=== PATIENT | female | born 1955 ===

== ENCOUNTER → 2021-09-20 14:57 | Outpatient (BNVA) | payer BC, SELFPAY | PROVIDERS: PCP Nurse Practitioner Family; Visit Provider Internal Medicine Rheumatology | DX: Z13.89 Encounter for screening for other disorder (principal) ==

== ENCOUNTER 2021-09-23 06:57 | Outpatient (REF) | payer BC, SELFPAY ==
--- NOTE | ~2021-09-23 | XR_ITS ---
EXAMINATION: XR BILATERAL HAND CLINICAL INFORMATION: Long-term drug therapy. COMPARISON: None. TECHNIQUE: 3 views each hand. FINDINGS: Left Hand: There is periarticular bony erosive changes DIP joint 3rd digit and mild periarticular spurring DIP joint 2nd digit. No visible acute fracture or dislocation seen. Soft tissues are unremarkable. Right Hand: There is no visible acute fracture, dislocation or subluxation. Mild loss of PIP and DIP joint spaces seen. There is minimal periarticular spurring DIP joints 2nd and 3rd digits. There is mild osteopenia. XR/XR hand RT min 3V IMPRESSION: Mild degenerative changes PIP and DIP joints of both hands. No visible acute fracture or dislocation. No subluxation seen. Mild osteopenia.
--- NOTE | ~2021-09-23 | XR_ITS ---
EXAMINATION: XR BILATERAL HAND CLINICAL INFORMATION: Long-term drug therapy. COMPARISON: None. TECHNIQUE: 3 views each hand. FINDINGS: Left Hand: There is periarticular bony erosive changes DIP joint 3rd digit and mild periarticular spurring DIP joint 2nd digit. No visible acute fracture or dislocation seen. Soft tissues are unremarkable. Right Hand: There is no visible acute fracture, dislocation or subluxation. Mild loss of PIP and DIP joint spaces seen. There is minimal periarticular spurring DIP joints 2nd and 3rd digits. There is mild osteopenia. XR/XR hand LT min 3V IMPRESSION: Mild degenerative changes PIP and DIP joints of both hands. No visible acute fracture or dislocation. No subluxation seen. Mild osteopenia.
[2021-09-23 11:21] LABS: MANUAL DIFF FLAG NO
[2021-09-23 11:43] LABS: Alanine Aminotransferase 16 U/L (0-31); Albumin Level 4.1 g/dL (3.5-5.0); Alkaline Phosphatase 65 U/L (39-117); Anion Gap 13 (12-20); Aspartate Amino Transferase 25 U/L (5-31); Bilirubin Total 0.6 mg/dL (0.0-1.0); Blood Urea Nitrogen 16 mg/dL (9-16); C Reactive Protein 0.65 mg/dL (< or = 0.50); Calcium 9.5 mg/dL (8.4-10.2); Carbon Dioxide 25 mmol/L (22-29); Chloride 103 mmol/L (96-108); Estimated Glomerular Filt Rate > 60; Glucose Random 113 mg/dL (60-115); Potassium 4.4 mmol/L (3.3-5.1); Sodium 137 mmol/L (135-145); Total Protein 7.4 g/dL (6.5-8.0)
[2021-09-23 11:58] LABS: Basophils Percent Auto 0.5 % (0-2); Eosinophils Absolute Auto 0.2 X10*3/uL (0.0-0.4); Eosinophils Percent Auto 3.9 % (0-4); Hematocrit 37.6 % (37.0-47.0); Imm Gran Abs Auto 0.02 X10*3/uL (0.00-0.03); Imm Gran Pct Auto 0.3 % (0.0-0.4); Lymphocytes Absolute Auto 1.5 X10*3/uL (1.2-4.9); Lymphocytes Percent Auto 24.7 % (20-40); Mean Corpuscular HGB Conc 31.9 g/dl (31.0-35.0); Mean Corpuscular Volume 87.9 fL (80.0-98.0); Mean Platelet Volume 10.4 fL (9.4-12.3); Monocytes Absolute Auto 0.6 X10*3/uL (0.1-1.2); Neutrophils Absolute Auto 3.6 x10*3/uL (2.0-8.3); Neutrophils Percent Auto 60.6 % (45-73); Platelet Count 357 X10*3/uL (160-400); Red Blood Count 4.28 X10*6/uL (4.20-5.50); Red Cell Distribution Width 14.3 % (11.0-16.0); White Blood Count 5.9 X10*3/uL (4.8-10.8)
[2021-09-23 12:42] LABS: Erythrocyte Sedimentation Rate 34 MM/HR (0-20)
== END 2021-09-23 06:58 | disposition home or self-care (01) ==
LOC: HO.HMGCLDS 06:57
PROVIDERS: PCP Nurse Practitioner Family; Visit Provider Internal Medicine Rheumatology
DX: M19.90 Unspecified osteoarthritis, unspecified site (principal); Z79.899 Other long term (current) drug therapy
CPT/HCPCS: 36415; 73130; 80053; 85025; 85652; 86140

== ENCOUNTER → 2022-09-26 14:50 | Outpatient (BNVA) | payer BC, SELFPAY | PROVIDERS: PCP Nurse Practitioner Family; Visit Provider Internal Medicine Rheumatology | DX: Z13.89 Encounter for screening for other disorder (principal) ==

== ENCOUNTER 2022-09-29 07:10 | Outpatient (REF) | payer BC, SELFPAY ==
[2022-09-29 11:44] LABS: MANUAL DIFF FLAG NO
[2022-09-29 12:01] LABS: Alanine Aminotransferase 15 U/L (0-31); Albumin Level 4.3 g/dL (3.5-5.0); Alkaline Phosphatase 68 U/L (39-117); Anion Gap 13 (12-20); Aspartate Amino Transferase 26 U/L (5-31); Basophils Percent Auto 0.6 % (0-2); Bilirubin Total 0.6 mg/dL (0.0-1.0); Blood Urea Nitrogen 17 mg/dL (9-16); C Reactive Protein 0.41 mg/dL (< or = 0.50); Calcium 9.3 mg/dL (8.4-10.2); Carbon Dioxide 26 mmol/L (22-29); Chloride 103 mmol/L (96-108); Eosinophils Absolute Auto 0.2 X10*3/uL (0.0-0.4); Eosinophils Percent Auto 3.7 % (0-4); Estimated Glomerular Filt Rate > 60; Glucose Random 104 mg/dL (60-115); Hematocrit 38.3 % (37.0-47.0); Hemoglobin 12.2 g/dl (12.0-16.0); Imm Gran Abs Auto 0.01 X10*3/uL (0.00-0.03); Imm Gran Pct Auto 0.2 % (0.0-0.4); Lymphocytes Absolute Auto 1.4 X10*3/uL (1.2-4.9); Lymphocytes Percent Auto 27.9 % (20-40); Mean Corpuscular HGB Conc 31.9 g/dl (31.0-35.0); Mean Corpuscular Hemoglobin 27.7 pg (27.0-33.0); Mean Platelet Volume 10.1 fL (9.4-12.3); Monocytes Absolute Auto 0.6 X10*3/uL (0.1-1.2); Monocytes Percent Auto 12.1 % (2-11); Neutrophils Absolute Auto 2.7 x10*3/uL (2.0-8.3); Neutrophils Percent Auto 55.5 % (45-73); Platelet Count 305 X10*3/uL (160-400); Potassium 4.2 mmol/L (3.3-5.1); Red Cell Distribution Width 14.4 % (11.0-16.0); Sodium 138 mmol/L (135-145); Total Protein 7.2 g/dL (6.5-8.0); White Blood Count 4.9 X10*3/uL (4.8-10.8)
[2022-09-29 12:43] LABS: Erythrocyte Sedimentation Rate 25 MM/HR (0-20)
== END 2022-09-29 07:11 | disposition home or self-care (01) ==
LOC: HO.HMGCLDS 07:10
PROVIDERS: PCP Nurse Practitioner Family; Visit Provider Internal Medicine Rheumatology
DX: M19.90 Unspecified osteoarthritis, unspecified site (principal); Z79.899 Other long term (current) drug therapy
CPT/HCPCS: 36415; 80053; 85025; 85652; 86140

== ENCOUNTER 2023-04-03 14:53 | Outpatient (AMB) | payer BC, SELFPAY ==
--- NOTE | 2023-04-03 14:54 | A.OFFVIS_ITS ---
Intake Vital Signs 04/03/23 15:16 Height 5 ft 4 in Weight 150 lb 9.211 oz BMI 25.8 BP 100/80 Blood Pressure Location Rt brachial Position Sitting Pulse 84 Pulse Source Pulse Oximeter Temp 97.5 F Temp Source Skin Pulse Oximetry (%) 96 Oxygen Delivery Method Room Air Intake Visit Reasons: Rheumatoid Arthritis Intake Note: Patient presents today to follow up on RA. 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 Accompanied by: Self / Same As Patient Allergies Penicillins Allergy (Severe, Verified 04/03/23 15:17) Unknown Medication List - Last Reconciled 04/03/23 by Sly Townsend MD atorvastatin 10 mg PO DAILY calcium 26-vit D3-magnesium 15 167 mg calcium- 1.67 mcg-83 mg 1 cap PO DAILY cranberry extract 500 mg PO DAILY [id number] 149-hyal ac 750 mg-100 mg- 125 mg-1.65 mg (Glucosamine Chondroit Complx Advan) 1 tab PO DAILY multivitamin 1 tab PO DAILY omega-3 fatty acids 1,000 mg PO DAILY sulfasalazine 0.5 grams PO five times a day; give with food (meal/snack) HPI HPI Comments History of Present Illness Details The patient returns for evaluation of her seronegative rheumatoid arthritis. She remains on the sulfasalazine, taking 2500 mg spread through the day. She does admit occasionally that she skips a dose. She seems to say the joints are fairly stable with occasional aching in the fingers when she is busy. There has not been any numbness in the hands or feet. She had been evaluated in the past by her primary doctor for osteoporosis. Treatment with alendronate was started but she decided against it, worried about side effects. She is on some vitamin-D supplements that she takes in the winter time at present. She is active taking walks and also gardening. [facility] Medical History Long-term use of immunosuppressant medication Osteoporosis Osteoarthritis of foot Inflammatory arthritis Surgical History H/O tubal ligation Social History Household Members: Spouse Both parents involved: No Caregiver staying overnight: No Housing: House Are you a primary personal care worker to a significant other at home: No Do you presently have visiting nurse or other home services: No 75 years or older and lives alone: No Alcohol intake: current Alcohol intake frequency: holidays/special occasions only Alcohol type: wine Patient Tobacco Use Status: Never used Tobacco e-Cigarette/Vaping Use: Never Used service: No Current occupational status: retired Review of Systems Const Details: Negative for appetite change, weight change, fever, chills, malaise and fatigue Eyes Details: Negative for vision change, dry eyes,headaches and dizziness GI Details: Negative indigestion/heartburn, nausea, abdominal pain, bowel changes, diarrhea, constipation and bloody stool. Skin/Breast Details: Negative for itching, rash, hives, Raynaud's symptoms, sun sensitivity, and skin cancer Endo Details: Negative for polyuria and polydypsia Kulwant/Lymph Details: Negative for excessive bruising or bleeding. Physical Exam Vital Signs: Last Vital Signs Temp 97.5 F 04/03/23 15:16 Pulse 84 04/03/23 15:16 BP 100/80 04/03/23 15:16 Pulse Ox 96 04/03/23 15:16 Oxygen Delivery Method Room Air 04/03/23 15:16 BMI result Body Mass Index 25.8 APPEARANCE: Patient in no acute distress EYES no redness, pupils equal and reactive to light, eyelids normal. No temporal artery tenderness, redness or swelling Cervical Spine:.? Slight decrease in the extent?of normal?range of motion without pain; no tenderness. Thoracic Spine:.? No scoliosis.? No tenderness on palpation. Lumbar Spine:.? Alignment normal.? Full range of motion without pain, no tenderness. Chest Wall:.? No tenderness, swelling, increased warmth or erythema. Hands:.? Right:? There is swelling of the 1st 3 MCP joints of a mild degree.? There MCP are not tender.? There is some minimal bony enlargement at the thumb IP joint, 2nd DIP, and 3rd DIP joints without tenderness.? There is no flexor tendon triggering, thenar atrophy or sensory loss.? Left:? There is slight swelling of the 1st 2 MCP joints and without tenderness.? There is some minimal bony enlargement without tenderness at the PIP joints.? No flexor tendon triggering, thenar atrophy or sensory loss. Wrists:? right:? There is mild pain with flexion at 10 degrees and 45 degrees of flexion.? some slight tenderness but no swelling.? Some wrist pain with extremes of supination and pronation of the wrist.? Left: Mild pain with flexion at 60 degrees or extension and 45 degrees.? Slight tenderness but no swelling. Shoulders:.?? Full range of motion without pain. No tenderness, weakness, swelling, increased warmth or erythema. Hips:.? Full range of motion without pain. Hip bursa:.? No tenderness. Knees:.?? Normal pain-free range of motion with mild patellofemoral crepitus but no effusion,? tenderness, swelling, increased warmth or erythema.? Ankles:.? Normal pain-free range of motion without tenderness, swelling, increased warmth or erythema. Feet:? Right:? Mild to moderate bony enlargement and limitation of motion of the 1st MTP joint.? It is minimally tender.? There is minimal hallux valgus deformity.? Other joints in the foot do not show any swelling or tenderness.? Left:? Slight bony enlargement without tenderness at the 1st MTP.? Other joints have normal pain-free range of motion without tenderness, swelling, increased warmth or erythema. Tender points: No tenderness to digital palpation at the occiput, trapezius, second rib, lateral epicondyle, knees, greater trochanter and gluteal area bilaterally. Results Reviewed Results Reviewed: Laboratory Tests 09/29/22 07:16 WBC 4.9 Hgb 12.2 ESR 25 H Creatinine 0.85 AST 26 ALT 15 C-Reactive Protein 0.41 Assessment & Plan Assessment & Plan (1) Long-term use of immunosuppressant medication: Code(s): Z79.899 - Other medical terminologist (current) drug therapy (2) Osteoporosis: Code(s): M81.0 - Age-related osteoporosis without current pathological fracture (3) Inflammatory arthritis: Comment: Some erosive changes in finger looking like OA Code(s): M19.90 - Unspecified osteoarthritis, unspecified site Plan Rheumatoid arthritis with I think good control of inflammation at present. She has some limitation range of motion in the wrists, a chronic problem. The lab work looked good from the spring and we we will recheck CBC, inflammatory markers and Chem panel. She will continue with the sulfasalazine as above. I did discuss with her the benefits of evaluation and treatment for osteoporosis. Another bone density at this point might be more predictive of her possibility of fracture. She does not want to proceed with that as she thinks the treatment was too risky for her. She will be scheduled for return visit in about 6 months. Orders: Orders Erythrocyte Sedimentation Rate Today M19.90 - Unspecified osteoarthritis, unspecified site, Z79.899 - Other medical terminologist (current) drug therapy Complete Blood Count Auto Diff Today M19.90 - Unspecified osteoarthritis, unspecified site, Z79.899 - Other detention (current) drug therapy Comprehensive Met. Panel Today M19.90 - Unspecified osteoarthritis, unspecified site, Z79.899 - Other detention (current) drug therapy C Reactive Protein Today M19.90 - Unspecified osteoarthritis, unspecified site, Z79.899 - Other detention (current) drug therapy Vitamin D 25-OH (D2 and D3) Today M81.0 - Age-related osteoporosis without current pathological fracture Coding Level of Care Code Est Pt Level 3 (92868) Diagnoses Long-term use of immunosuppressant medication Z79.899 Osteoporosis M81.0 Inflammatory arthritis M19.90
[2023-04-03 15:16] VITALS: BP 100/80; PULSE 84; TEMP 36.4; O2SAT 96; BMI 25.8
== END 2023-04-03 16:08 | disposition home or self-care (01) ==
PROVIDERS: PCP Nurse Practitioner Family; Visit Provider Internal Medicine Rheumatology
DX: Z79.899 Other long term (current) drug therapy (principal); M81.0 Age-related osteoporosis without current pathological fracture; M19.90 Unspecified osteoarthritis, unspecified site
CPT/HCPCS: 99213

== ENCOUNTER → 2023-04-03 14:53 | Outpatient (BNVA) | payer BC, SELFPAY | PROVIDERS: PCP Nurse Practitioner Family; Visit Provider Internal Medicine Rheumatology ==

== ENCOUNTER 2023-04-04 08:10 | Outpatient (REF) | payer BC, SELFPAY ==
[2023-04-04 11:29] LABS: MANUAL DIFF FLAG NO
[2023-04-04 11:51] LABS: Basophils Percent Auto 0.7 % (0-2); Eosinophils Absolute Auto 0.2 X10*3/uL (0.0-0.4); Eosinophils Percent Auto 3.5 % (0-4); Hemoglobin 12.5 g/dl (12.0-16.0); Imm Gran Abs Auto 0.01 X10*3/uL (0.00-0.03); Imm Gran Pct Auto 0.2 % (0.0-0.4); Lymphocytes Absolute Auto 1.4 X10*3/uL (1.2-4.9); Lymphocytes Percent Auto 29.3 % (20-40); Mean Corpuscular HGB Conc 32.1 g/dl (31.0-35.0); Mean Corpuscular Hemoglobin 28.7 pg (27.0-33.0); Mean Corpuscular Volume 89.7 fL (80.0-98.0); Monocytes Absolute Auto 0.4 X10*3/uL (0.1-1.2); Monocytes Percent Auto 9.3 % (2-11); Neutrophils Absolute Auto 2.6 x10*3/uL (2.0-8.3); Platelet Count 313 X10*3/uL (160-400); Red Blood Count 4.35 X10*6/uL (4.20-5.50); Red Cell Distribution Width 14.1 % (11.0-16.0); White Blood Count 4.6 X10*3/uL (4.8-10.8)
[2023-04-04 12:15] LABS: Alanine Aminotransferase 15 U/L (0-31); Albumin Level 4.3 g/dL (3.5-5.0); Alkaline Phosphatase 66 U/L (39-117); Anion Gap 14 (12-20); Aspartate Amino Transferase 23 U/L (5-31); Bilirubin Total 0.4 mg/dL (0.0-1.0); Blood Urea Nitrogen 17 mg/dL (9-16); Calcium 9.2 mg/dL (8.4-10.2); Carbon Dioxide 24 mmol/L (22-29); Chloride 106 mmol/L (96-108); Estimated Glomerular Filt Rate > 60; Glucose Random 101 mg/dL (60-115); Potassium 4.2 mmol/L (3.3-5.1); Sodium 140 mmol/L (135-145); Total Protein 7.7 g/dL (6.5-8.0)
[2023-04-04 12:42] LABS: Erythrocyte Sedimentation Rate 25 MM/HR (0-20)
[2023-04-08 13:27] LABS: Vitamin D 25-OH, D2 <4 ng/mL; Vitamin D 25-OH, D3 50 ng/mL; Vitamin D 25-OH, Total 50 ng/mL (30-100)
== END 2023-04-04 08:11 | disposition home or self-care (01) ==
LOC: HO.HMGCLDS 08:10
PROVIDERS: PCP Nurse Practitioner Family; Visit Provider Internal Medicine Rheumatology
DX: M19.90 Unspecified osteoarthritis, unspecified site (principal); M81.0 Age-related osteoporosis without current pathological fracture; Z79.899 Other long term (current) drug therapy
CPT/HCPCS: 36415; 80053; 82306; 85025; 85652; 86140

== ENCOUNTER 2023-10-10 15:11 | Outpatient (AMB) | payer BC, SELFPAY ==
--- NOTE | 2023-10-10 15:19 | A.OFFVIS_ITS ---
Vital Signs 10/10/23 15:27 Height 5 ft 4 in Weight 158 lb 1.143 oz BMI 27.1 BP 110/78 Blood Pressure Location Rt brachial Position Sitting Pulse 69 Pulse Source Pulse Oximeter Pulse Oximetry (%) 97 Oxygen Delivery Method Room Air Intake Visit Reasons: ra Intake Note: Patient last seen 04/03/[address] Townsend, presents today for follow up and test results. Pt would like to addres medication dosage. 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 Cook 68yoF returns for followup of her seronegative rheumatoid arthritis. She remains on the sulfasalazine, taking 2500 mg spread through the day. She does admit occasionally that she skips a dose. She reports that the joints are fairly stable with occasional aching in the fingers with excessive use. She denies numbness in the hands or feet. She had been evaluated in the past by her PCP for osteoporosis. Treatment with alendronate was started but she decided against it, worried about side effects. She takes vitamin-D supplements only in the winter time at present. She is active taking walks and also gardening. [facility] Medical History (Updated 10/10/23 @ 15:29 by OMAYRA Coronado) Long-term use of immunosuppressant medication Osteoporosis Osteoarthritis of foot Inflammatory arthritis Surgical History H/O tubal ligation Social History Household Members: Spouse Housing: House Are you a primary medicare interviewer to a significant other at home: No Do you presently have visiting nurse or other home services: No Alcohol intake: current Alcohol intake frequency: holidays/special occasions only Alcohol type: wine Patient Tobacco Use Status: Never used Tobacco e-Cigarette/Vaping Use: Never Used service: No Current occupational status: retired Review of Systems Const All systems reviewed & are unremarkable except as noted in HPI and below Physical Exam Vital Signs: Last Vital Signs Pulse 69 10/10/23 15:27 BP 110/78 10/10/23 15:27 Pulse Ox 97 10/10/23 15:27 Oxygen Delivery Method Room Air 10/10/23 15:27 BMI result Body Mass Index 27.1 APPEARANCE: Patient in no acute distress EYES no redness, eyelids normal. No temporal artery tenderness, redness or swelling HEART:? Regular rhythm, S1-S2 heard, no murmurs, rubs or gallops. LUNG:? Clear to percussion and auscultation Cervical Spine:.? Slight decrease in the extent?of normal?range of motion without pain; no tenderness. Thoracic Spine:.? No scoliosis.? No tenderness on palpation. Lumbar Spine:.? Alignment normal.? Full range of motion without pain, no tenderness. Chest Wall:.? No tenderness, swelling, increased warmth or erythema. Hands:.? Right:? There is enlargement of the 1st 3 MCP joints of a mild degree.? There MCP are not tender.? There is some minimal bony enlargement at the thumb IP joint, 2nd DIP, and 3rd DIP joints without tenderness.? There is no flexor tendon triggering, thenar atrophy or sensory loss.? Left:? There is some minimal bony enlargement without tenderness at the PIP joints.? No flexor tendon triggering, thenar atrophy or sensory loss. Wrists:? right:? There is mild pain with flexion at 10 degrees and 45 degrees of flexion.? some slight tenderness but no swelling.? Some wrist pain with extremes of supination and pronation of the wrist.? Left: Mild pain with flexion at 60 degrees or extension and 45 degrees.? Shoulders:.?? Full range of motion without pain. No tenderness, weakness, swelling, increased warmth or erythema. Hips:.? Full range of motion without pain. Hip bursa:.? No tenderness. Knees:.?? Normal pain-free range of motion with mild patellofemoral crepitus but no effusion,? tenderness, swelling, increased warmth or erythema.? Ankles:.? Normal pain-free range of motion without tenderness, swelling, increased warmth or erythema. Feet:? Right:? Mild to moderate bony enlargement and limitation of motion of the 1st MTP joint.? It is minimally tender.? There is minimal hallux valgus deformity.? Other joints in the foot do not show any swelling or tenderness.? Left:? Slight bony enlargement without tenderness at the 1st MTP.? Other joints have normal pain-free range of motion without tenderness, swelling, increased warmth or erythema. Tender points: No tenderness to digital palpation at the occiput, trapezius, second rib, lateral epicondyle, knees, greater trochanter and gluteal area bilaterally. Results Reviewed Results Reviewed: Laboratory Tests 09/29/22 07:16 WBC 4.9 Hgb 12.2 ESR 25 H Creatinine 0.85 AST 26 ALT 15 C-Reactive Protein 0.41 Laboratory Tests 10/11/23 07:15 ESR 20 Creatinine 0.74 AST 27 ALT 19 C-Reactive Protein 0.[address] [address] XRay Report Signed Patient: Joyce Koehler MR#: [id number] : 1955 Acct:[id number] Age/Sex: 66 / F ADM Date: 09/23/21 Loc: [facility] Attending Dr: Sly Townsend MD Ordering Physician: Sly Townsend MD Date of Service: 09/23/21 Procedure(s): XR hand RT min 3V Accession Number(s): [id number] cc: Sly Townsend MD~ EXAMINATION: XR BILATERAL HAND CLINICAL INFORMATION: Long-term drug therapy. COMPARISON: None. TECHNIQUE: 3 views each hand. FINDINGS: Left Hand: There is periarticular bony erosive changes DIP joint 3rd digit and mild periarticular spurring DIP joint 2nd digit. No visible acute fracture or dislocation seen. Soft tissues are unremarkable. Right Hand: There is no visible acute fracture, dislocation or subluxation. Mild loss of PIP and DIP joint spaces seen. There is minimal periarticular spurring DIP joints 2nd and 3rd digits. There is mild osteopenia. XR/XR hand RT min 3V IMPRESSION: Mild degenerative changes PIP and DIP joints of both hands. No visible acute fracture or dislocation. No subluxation seen. Mild osteopenia. Assessment & Plan Assessment & Plan (1) Long-term use of immunosuppressant medication: Code(s): Z79.899 - Other skilled nursing (current) drug therapy Category: Medical (2) Osteoporosis: Code(s): M81.0 - Age-related osteoporosis without current pathological fracture Category: Medical Qualifiers: Osteoporosis type: age-related Presence of current pathological fracture: without current pathological fracture Qualified Code(s): M81.0 - Age- related osteoporosis without current pathological fracture (3) Inflammatory arthritis: Comment: Some erosive changes in finger looking like OA Code(s): M19.90 - Unspecified osteoarthritis, unspecified site Category: Medical Plan #Rheumatoid arthritis with I think good control of inflammation at present. She has some limitation range of motion in the wrists, a chronic problem. Patient desires to reduce SLZ. She was advised that imaging taken in the past in 2021 does show periarticular erosions and osteopenia which are some destructive signs of the RA. Sometimes this can still be ongoing even though there is no swelling and tenderness to her joints. She will continue with the sulfasalazine but decrease the dose to 4 pills and will go back to 5 if ROS such increased stiffness, tenderness and swelling. #Fdc Use: The lab work looked good from the spring 2022 and today we will recheck CBC, inflammatory markers and Chem panel. #Osteoporosis: I did discuss with her again the benefits of evaluation and treatment for osteoporosis. Another bone density at this point might be more predictive of her possibility of fracture. She does not want to proceed with that as she thinks the treatment was too risky for her. time spent 30 minutes reviewing history, evaluating patient and documenting She will be scheduled for return visit in about 6 months with labs 1 week before next visit Orders: Orders Erythrocyte Sedimentation Rate 4 Months M19.90 - Unspecified osteoarthritis, un specified site, Z79.899 - Other intermediate designer (current) drug therapy Complete Blood Count Auto Diff 4 Months M19.90 - Unspecified osteoarthritis, unspecified site, Z79.899 - Other intermediate designer (current) drug therapy Comprehensive Met. Panel 4 Months M19.90 - Unspecified osteoarthritis, unspecified site, Z79.899 - Other skilled nursing (current) drug therapy Erythrocyte Sedimentation Rate 10/11/23 Z79.899 - Other intermediate designer (current) drug therapy, M19.90 - Unspecified osteoarthritis, unspecified site Comprehensive Met. Panel 10/11/23 Z79.899 - Other intermediate designer (current) drug therapy, M19.90 - Unspecified osteoarthritis, unspecified site C Reactive Protein 4 Months M19.90 - Unspecified osteoarthritis, unspecified site, Z79.899 - Other intermediate designer (current) drug therapy C Reactive Protein 10/11/23 Z79.899 - Other skilled nursing (current) drug therapy, M19.90 - Unspecified osteoarthritis, unspecified site Complete Blood Count Auto Diff 10/11/23 Z79.899 - Other intermediate designer (current) drug therapy, M19. - Unspecified osteoarthritis, unspecified site Medications: Changed From sulfasalazine 0.5 grams PO five times a day; give with food (meal/snack) 450 tabs 3RF M19.90 - Unspecified osteoarthritis, unspecified site To sulfasalazine 0.5 grams PO five times a day; give with food (meal/snack) 450 tabs 3RF M19.90 - Unspecified osteoarthritis, unspecified site Coding Level of Care Code Est Pt Level 4 (04965) Complex EM visit Add On G2211 Diagnoses Long-term use of immunosuppressant medication Z79.899 Age-related osteoporosis without current pathological fracture M81.0 Osteoporosis type: age-related Presence of current pathological fracture: without current pathological fracture Inflammatory arthritis M19.90
[2023-10-10 15:27] VITALS: BP 110/78; PULSE 69; O2SAT 97; BMI 27.1
== END 2023-10-10 15:54 | disposition home or self-care (01) ==
PROVIDERS: PCP Nurse Practitioner Family; Visit Provider Nurse Practitioner Family
DX: Z79.899 Other long term (current) drug therapy (principal); M81.0 Age-related osteoporosis without current pathological fracture; M19.90 Unspecified osteoarthritis, unspecified site
CPT/HCPCS: 99214

== ENCOUNTER → 2023-10-10 15:11 | Outpatient (BNVA) | payer BC, SELFPAY | PROVIDERS: PCP Nurse Practitioner Family; Visit Provider Nurse Practitioner Family ==

== ENCOUNTER 2023-10-11 07:10 | Outpatient (REF) | payer BC, SELFPAY ==
[2023-10-11 10:25] LABS: MANUAL DIFF FLAG NO
[2023-10-11 10:37] LABS: Basophils Percent Auto 0.6 % (0-2); Eosinophils Absolute Auto 0.3 X10*3/uL (0.0-0.4); Eosinophils Percent Auto 5.1 % (0-4); Hematocrit 37.8 % (37.0-47.0); Hemoglobin 12.2 g/dl (12.0-16.0); Imm Gran Abs Auto 0.01 X10*3/uL (0.00-0.03); Imm Gran Pct Auto 0.2 % (0.0-0.4); Lymphocytes Absolute Auto 1.5 X10*3/uL (1.2-4.9); Lymphocytes Percent Auto 31.4 % (20-40); Mean Corpuscular HGB Conc 32.3 g/dl (31.0-35.0); Mean Corpuscular Hemoglobin 28.8 pg (27.0-33.0); Mean Corpuscular Volume 89.4 fL (80.0-98.0); Mean Platelet Volume 10.2 fL (9.4-12.3); Monocytes Absolute Auto 0.4 X10*3/uL (0.1-1.2); Neutrophils Absolute Auto 2.6 x10*3/uL (2.0-8.3); Neutrophils Percent Auto 53.7 % (45-73); Platelet Count 320 X10*3/uL (160-400); Red Blood Count 4.23 X10*6/uL (4.20-5.50); Red Cell Distribution Width 14.7 % (11.0-16.0); White Blood Count 4.9 X10*3/uL (4.8-10.8)
[2023-10-11 11:04] LABS: Alanine Aminotransferase 19 U/L (0-31); Albumin Level 4.1 g/dL (3.5-5.0); Alkaline Phosphatase 66 U/L (39-117); Anion Gap 10 (12-20); Aspartate Amino Transferase 27 U/L (5-31); Bilirubin Total 0.3 mg/dL (0.0-1.0); Blood Urea Nitrogen 15 mg/dL (9-16); C Reactive Protein 0.16 mg/dL (< or = 0.50); Calcium 9.5 mg/dL (8.4-10.2); Carbon Dioxide 28 mmol/L (22-29); Chloride 104 mmol/L (96-108); Estimated Glomerular Filt Rate > 60; Glucose Random 96 mg/dL (60-115); Potassium 4.1 mmol/L (3.3-5.1); Sodium 138 mmol/L (135-145); Total Protein 7.6 g/dL (6.5-8.0)
[2023-10-11 11:24] LABS: Erythrocyte Sedimentation Rate 20 MM/HR (0-20)
== END 2023-10-11 07:11 | disposition home or self-care (01) ==
LOC: HO.HMGCLDS 07:10
PROVIDERS: PCP Nurse Practitioner Family; Visit Provider Nurse Practitioner Family
DX: M19.90 Unspecified osteoarthritis, unspecified site (principal); Z79.899 Other long term (current) drug therapy
CPT/HCPCS: 36415; 80053; 85025; 85652; 86140

== ENCOUNTER 2024-02-07 07:12 | Outpatient (REF) | payer BC, SELFPAY ==
[2024-02-07 11:29] LABS: MANUAL DIFF FLAG NO
[2024-02-07 11:34] LABS: Basophils Percent Auto 0.4 % (0-2); Eosinophils Absolute Auto 0.3 X10*3/uL (0.0-0.4); Eosinophils Percent Auto 4.9 % (0-4); Hematocrit 36.7 % (37.0-47.0); Hemoglobin 11.7 g/dl (12.0-16.0); Imm Gran Abs Auto 0.03 X10*3/uL (0.00-0.03); Imm Gran Pct Auto 0.6 % (0.0-0.4); Lymphocytes Absolute Auto 1.5 X10*3/uL (1.2-4.9); Lymphocytes Percent Auto 28.2 % (20-40); Mean Corpuscular HGB Conc 31.9 g/dl (31.0-35.0); Mean Corpuscular Hemoglobin 28.5 pg (27.0-33.0); Mean Corpuscular Volume 89.3 fL (80.0-98.0); Monocytes Absolute Auto 0.5 X10*3/uL (0.1-1.2); Monocytes Percent Auto 8.9 % (2-11); Neutrophils Absolute Auto 2.9 x10*3/uL (2.0-8.3); Platelet Count 292 X10*3/uL (160-400); Red Blood Count 4.11 X10*6/uL (4.20-5.50); Red Cell Distribution Width 14.8 % (11.0-16.0); White Blood Count 5.1 X10*3/uL (4.8-10.8)
[2024-02-07 12:38] LABS: Erythrocyte Sedimentation Rate 19 MM/HR (0-20)
[2024-02-07 12:52] LABS: Alanine Aminotransferase 16 U/L (0-31); Alkaline Phosphatase 59 U/L (39-117); Anion Gap 9 (12-20); Aspartate Amino Transferase 22 U/L (5-31); Bilirubin Total 0.3 mg/dL (0.0-1.0); Blood Urea Nitrogen 14 mg/dL (9-16); C Reactive Protein 0.28 mg/dL (< or = 0.50); Calcium 9.3 mg/dL (8.4-10.2); Carbon Dioxide 27 mmol/L (22-29); Chloride 108 mmol/L (96-108); Estimated Glomerular Filt Rate > 60; Glucose Random 97 mg/dL (60-115); Potassium 3.9 mmol/L (3.3-5.1); Sodium 140 mmol/L (135-145); Total Protein 7.1 g/dL (6.5-8.0)
== END 2024-02-07 07:13 | disposition home or self-care (01) ==
LOC: HO.HMGCLDS 07:12
PROVIDERS: PCP Nurse Practitioner Family; Visit Provider Nurse Practitioner Family
DX: M19.90 Unspecified osteoarthritis, unspecified site (principal); Z79.899 Other long term (current) drug therapy
CPT/HCPCS: 36415; 80053; 85025; 85652; 86140

== ENCOUNTER 2024-03-28 15:34 | Outpatient (AMB) | payer BC, SELFPAY ==
--- NOTE | 2024-03-28 15:45 | A.OFFVIS_ITS ---
Vital Signs 03/28/24 15:49 Height 5 ft 4 in Weight 155 lb 10.342 oz BMI 26.7 BP 140/72 H Blood Pressure Location Lt brachial Position Sitting Pulse 79 Pulse Source Pulse Oximeter Pulse Oximetry (%) 97 Oxygen Delivery Method Room Air Intake Visit Reasons: RA on Reduce SLZ 4 pills Intake Note: Patient presents for RA. Allergies Penicillins Allergy (Severe, Verified 03/28/24 15:48) Unknown Medication List - Last Reconciled 03/28/24 by Dat Black MD atorvastatin 10 mg PO DAILY calcium 26-vit D3-magnesium 15 167 mg calcium- 1.67 mcg-83 mg 1 cap PO DAILY cranberry extract 500 mg PO DAILY [id number] 149-hyal ac 750 mg-100 mg- 125 mg-1.65 mg (Glucosamine Chondroit Complx Advan) 1 tab PO DAILY multivitamin 1 tab PO DAILY omega-3 fatty acids 1,000 mg PO DAILY sulfasalazine 2 grams PO DAILY HPI Comments Details: This is a 68-year-old female with seronegative RA who presents for follow-up. She states that she is doing reasonably well overall. She has lowered her sulfasalazine from 2500 mg a day to 2000 mg daily. She states that she takes it all at once with plenty of water. Does not have any significant GI symptoms. She states that her joints are doing fairly well overall. Intermittent joint aches and pains but nothing significant. She states that she gets triggering of right middle finger she states that she has had injections in the past, they injections were initially helpful then they stopped helping over the years. [facility]LY [facility], [facility] Medical History (Updated 03/28/24 @ 16:16 by Dat Black MD) Osteoporosis Osteoarthritis of foot Surgical History H/O tubal ligation Social History Household Members: Spouse Both parents involved: No Caregiver staying overnight: No Housing: House Are you a primary managed care manager to a significant other at home: No Do you presently have visiting nurse or other home services: No 75 years or older and lives alone: No Alcohol intake: current Alcohol intake frequency: holidays/special occasions only Alcohol type: wine Patient Tobacco Use Status: Never used Tobacco e-Cigarette/Vaping Use: Never Used service: No Current occupational status: retired Review of Systems Const Denies fever(s) and Denies weight loss Resp Reports no additional complaints Musc Details: Finger triggering Denies joint swelling Physical Exam Vital Signs: Last Vital Signs Pulse 79 03/28/24 15:49 BP 140/72 H 03/28/24 15:49 Pulse Ox 97 03/28/24 15:49 Oxygen Delivery Method Room Air 03/28/24 15:49 BMI result Body Mass Index 26.7 Const General: cooperative, healthy appearing and comfortable Nutritional Appearance: overweight Orientation/consciousness: patient oriented x3 Limitations: no limitations HEENT Head: Yes normocephalic and Yes atraumatic Mouth: moist mucous membranes Resp Effort & Inspection: normal respiratory effort and able to speak in complete sentences Auscultation: clear to auscultation bilaterally Cardio Rate: regular rate Rhythm: regular rhythm Skin General skin exam: no rashes or lesions noted Neuro General: patient oriented x3 Extrem Other: Mild osteoarthritic changes of both hands Prominent right ulnar styloid No wrist tenderness or swelling Bilateral limited wrist flexion and extension Some pain with extremes of flexion and extension Right 1st 3rd and 5th finger triggering Left 1st finger triggering Normal range of motion of elbows and shoulders without pain Normal nailfold capillaroscopy No knee pain with flexion-extension bilaterally Assessment & Plan Assessment & Plan (1) Seronegative rheumatoid arthritis: Comment: onset 2005 -ve RF -ve CCP SSZ 06/2006 effective Code(s): M06.00 - Rheumatoid arthritis without rheumatoid factor, unspecified site Category: Medical Plan: This is a 68-year-old female with seronegative RA who presents for follow-up. This is her 1st visit with me. She has lowered her sulfasalazine from 2500 mg d aily to 2 tabs mg daily last visit without any noticeable worsening of symptoms. On exam there is no active synovitis. Continue with sulfasalazine 2000 mg daily Labs before next visit in 6 months. We will consider further lowering her sulfasalazine to 1500 mg daily (2) On sulfasalazine therapy: Code(s): Z79.899 - Other extermination inspector (current) drug therapy Category: Medical Plan: Monitor safety labs (3) Trigger finger, right: Code(s): M65.30 - Trigger finger, unspecified finger Category: Medical Plan: Multiple trigger fingers including right thumb, right middle finger and right little finger, only the right middle finger is symptomatic. She has received steroid injections in the past which initially helpful then stopped helping. Advised patient to wear a Band-Aid on her PIP is at night Consider buying OTC finger splints, if no improvement, will consider referring her to Occupational therapy Plan I spent 30 minutes reviewing patient's chart, evaluating patient, ordering diagnostic workup, counseling patient and documenting in the chart Orders: Orders Complete Blood Count Auto Diff 6 Months Dat Black MD M19.90 - Unspecified osteoarthritis, unspecified site, Z79.899 - Other fci (current) drug therapy Comprehensive Met. Panel 6 Months Dat Black MD M19.90 - Unspecified osteoa rthritis, unspecified site, Z79.899 - Other fci (current) drug therapy C Reactive Protein 6 Months Dat Black MD M19.90 - Unspecified osteoarthritis, unspecified site, Z79.899 - Other extermination inspector (current) drug therapy Erythrocyte Sedimentation Rate 6 Months Dat Black MD M19.90 - Unspecified osteoarthritis, unspecified site, Z79.899 - Other extermination inspector (current) drug therapy Medications: Changed From sulfasalazine 0.5 grams PO five times a day; give with food (meal/snack) 450 tabs 3RF M19.90 - Unspecified osteoarthritis, unspecified site To sulfasalazine 2 grams PO DAILY M19.90 - Unspecified osteoarthritis, unspecified site BOAZ Coronado- Coding Level of Care Code Est Pt Level 4 (98554) Complex EM visit Add On G2211 Diagnoses Seronegative rheumatoid arthritis M06.00 On sulfasalazine therapy Z79.899 Trigger finger, right M65.30
[2024-03-28 15:49] VITALS: BP 140/72; PULSE 79; O2SAT 97; BMI 26.7
== END 2024-03-28 16:10 | disposition home or self-care (01) ==
PROVIDERS: PCP Nurse Practitioner Family; Visit Provider Student in an Organized Health Care Education/Training Program
DX: M06.00 Rheumatoid arthritis without rheumatoid factor, unspecified site (principal); Z79.899 Other long term (current) drug therapy; M65.30 Trigger finger, unspecified finger
CPT/HCPCS: 99214

== ENCOUNTER → 2024-03-28 15:34 | Outpatient (BNVA) | payer BC, SELFPAY | PROVIDERS: PCP Nurse Practitioner Family; Visit Provider Student in an Organized Health Care Education/Training Program ==

== ENCOUNTER 2024-12-23 07:59 | Outpatient (REF) | payer BC, SELFPAY ==
[2024-12-23 10:47] LABS: MANUAL DIFF FLAG NO
[2024-12-23 10:58] LABS: Hematocrit 35.7 % (37.0-47.0); Hemoglobin 11.6 g/dl (12.0-16.0); Imm Gran Abs Auto 0.01 X10*3/uL (0.00-0.03); Imm Gran Pct Auto 0.2 % (0.0-0.4); Lymphocytes Absolute Auto 1.3 X10*3/uL (1.2-4.9); Mean Corpuscular HGB Conc 32.5 g/dl (31.0-35.0); Mean Corpuscular Hemoglobin 27.9 pg (27.0-33.0); Mean Corpuscular Volume 85.8 fL (80.0-98.0); NRBC Abs Auto 0.000 X10*3/uL (0.0-0.012); NRBC Pct Auto 0.0 /100WBC (0.0-0.2); Platelet Count 321 X10*3/uL (160-400); Red Blood Count 4.16 X10*6/uL (4.20-5.50); White Blood Count 4.3 X10*3/uL (4.8-10.8)
[2024-12-23 11:43] LABS: Alanine Aminotransferase 14 U/L (0-31); Albumin Level 4.0 g/dL (3.5-5.0); Alkaline Phosphatase 68 U/L (39-117); Anion Gap 12 (12-20); Aspartate Amino Transferase 29 U/L (5-31); Blood Urea Nitrogen 18 mg/dL (9-16); Calcium 9.0 mg/dL (8.4-10.2); Carbon Dioxide 24 mmol/L (22-29); Chloride 107 mmol/L (96-108); Estimated Glomerular Filt Rate > 60; Potassium 4.0 mmol/L (3.3-5.1); Sodium 139 mmol/L (135-145); Total Protein 7.4 g/dL (6.5-8.0)
== END 2024-12-23 08:00 | disposition home or self-care (01) ==
LOC: HO.HMGCLDS 07:59
PROVIDERS: PCP Nurse Practitioner Family; Visit Provider Student in an Organized Health Care Education/Training Program
DX: M19.90 Unspecified osteoarthritis, unspecified site (principal); Z79.60 Long term (current) use of unspecified immunomodulators and immunosuppressants
CPT/HCPCS: 36415; 80053; 85025; 85652; 86140

== ENCOUNTER 2025-01-14 14:43 | Outpatient (AMB) | payer BC, SELFPAY ==
--- OUTSIDE RECORDS SUMMARY | 2025-01-08 23:59 | XMS_ITS | Continuity of Care Document ---
Author Organization [facility] Address [address] [place] [id number] Care Team Providers Care Instructional Support Specialist Name Role Phone Jigar GRIFFIN, Maria Elena Rossi Primary Care Physician [phone] Encounter [facility] Date(s): 12/09/24 - 01/08/25 [facility] [address] [place] [id number] Encounter Type: Triage Allergies, Adverse Reactions, Alerts Substance Criticality Severity Reaction Reaction Severity Status penicillin Active Immunizations Given and Recorded Vaccine Date Status Refusal Reason influenza virus vaccine, inactivated 03/23/22 Kaushal rded influenza virus vaccine, inactivated 03/04/21 Kaushal rded influenza virus vaccine, inactivated 1 03/19/18 Re corded influenza virus vaccine, inactivated 02/07/18 Kaushal rded influenza virus vaccine, inactivated 02/24/17 Kaushal rded influenza virus vaccine, inactivated 02/22/16 Kaushal rded influenza virus vaccine, inactivated 2 02/22/15 Re corded influenza virus vaccine, inactivated 3 03/19/14 Gi daya influenza virus vaccine, inactivated 4 03/08/11 Gi daya influenza virus vaccine, inactivated 03/07/11 Kaushal rded [id number] bivalent booster vax 03/16/22 Recorded tetanus/diphtheria/pertussis, acel(Tdap) 12/08/21 Recorded tetanus/diphtheria/pertussis, acel(Tdap) 08/22/11 Given SARS-CoV-2 (COVID-19) mRNA-1273 vaccine 09/17/21 R ecorded SARS-CoV-2 (COVID-19) mRNA-1273 vaccine 04/12/21 R ecorded SARS-CoV-2 (COVID-19) mRNA-1273 vaccine 10/07/20 R ecorded SARS-CoV-2 (COVID-19) mRNA-1273 vaccine 10/04/20 R ecorded SARS-CoV-2 (COVID-19) mRNA-1273 vaccine 09/08/20 R ecorded SARS-CoV-2 (COVID-19) mRNA-1273 vaccine 09/05/20 R ecorded pneumococcal 23-valent vaccine 5 02/16/21 Given Influenza Virus Vaccine (oldterm) 6 02/10/20 Recor ded Influenza Virus Vaccine (oldterm) 7 06/11/09 Given Influenza Virus Vaccine (oldterm) 8 04/22/08 Given Influenza Virus Vaccine (oldterm) 9 05/08/07 Given zoster vaccine, inactivated 05/07/19 Recorded zoster vaccine, inactivated 03/05/19 Recorded pneumococcal 13-valent vaccine 10 02/11/19 Given FluLaval (oldterm) 04/12/10 Given influ virus vac, H1N1, inactive(oldterm) 11 06/11/09 Given tetanus-diphtheria toxoids (Td) 12 08/09/01 Given [facility]: [[facility]/24/2015] QUADRIVALENT LOT [id number] EXP [id number] 3Result Comment: [10/08/2014] [facility] 4Admin Note: RECEIVED AT [facility] 5Result Comment: [facility] [place] [id number] 6Result Comment: influenza high dose quadrivalent lot [id number] exp [facility]16-[facility] 7Admin Note: per pt [facility]cvd [facility]where 8Admin Note: elsewhere 9Admin Note: 2006 GIVEN AT WORK 10Result Comment: [facility] [place] [id number] 11Admin Note: per pt rcvd elsewhere 12Admin Note: per patient Medications atorvastatin 10 mg oral tablet 1 tablet, By Mouth, Daily, # 90 tablet, 1 Refills, Maintenance, 08/02/24 10:45:00 AM EST, [facility], 162, cm, 07/12/24 13:45:00 EST, Height Start Date: 08/02/24 Status: Ordered Quantity: 90.0 Unit: tablet Repeat number: 1 calcium, vitamin D, antioxidants calcium, vitamin D, antioxidants, Refills 0, Maintenance, 10/16/18 7:41:23 AM EDT, Compound Start Date: 10/16/18 Status: Ordered Repeat number: 1 Glucosamine By Mouth, 0 Refills, Maintenance, 02/01/17 7:41:24 AM EDT Start Date: 02/01/17 Status: Ordered Repeat number: 1 Shiner-3 Polyunsaturated Fatty Acids By Mouth, 0 Refills, Maintenance, 02/01/17 7:42:11 AM EDT Start Date: 02/01/17 Status: Ordered Repeat number: 1 sulfasalazine 500 mg oral tablet 1 tablet = 500 mg, By Mouth, 5 times a day, # 450 tablet, 3 Refills, Maintenance, 08/22/11 9:29:47 AMEST Start Date: 08/22/11 Stop Date: 08/16/12 Status: Ordered Quantity: 450.0 Unit: tablet Repeat number: 4 UC II for joints- collagen [facility] UC II for joints- collagen [facility], Refills 0, Maintenance, 10/16/18 7:41:55 AM EDT, Compound Start Date: 10/16/18 Status: Ordered Repeat number: 1 Problem List Condition Confirmation Course Effective Dates Status Health Status Informant Hypercholesterolemia ASCVD 5.9% 02/25/22 Confirmed Active Hypothyroidism Confirmed Active Menopause Confirmed Active Osteoporosis Confirmed Active RA - Rheumatoid arthritis Confirmed Active Tubal ligation Confirmed Active Social History Social History Type Response Smoking Status Never smoker; Tobacc o user in household: No entered on: 05/02/15 Sex Sex Representation Female (finding) Patient Care team information Care Team Personnel Name: Jigar GRIFFIN, Maria Elena Rossi Position: S PCO Associate Professional Member Role: PCP Address: [address] [place] [id number]- [place] Telecom: Care Team Related Persons Name: CHRISTINA SURESH Name: JARVIS KEMP Insurance Providers Guarantor name: NYDIA KEMP Health Plan Information #: 1 Payer: [employer] [facility] Payer Identifier: NA Member Number: [id number] Group Number: [id number] Subscriber Identifier: [id number] Relationship to Subscriber: spouse Coverage Type: NA Coverage Verification Date: NA Telecom: NA Address: NA
--- NOTE | 2025-01-14 15:04 | A.OFFVIS_ITS ---
Vital Signs 01/14/25 15:10 Height 5 ft 4 in Weight 154 lb 1.65 oz BMI 26.4 BP 134/90 H Blood Pressure Location Lt brachial Position Sitting Pulse 86 Pulse Source Pulse Oximeter Pulse Oximetry (%) 98 Oxygen Delivery Method Room Air Intake Visit Reasons: RA Intake Note: Patient presents for RA follow up. Allergies Penicillins Allergy (Severe, Verified 01/14/25 15:09) Unknown Medication List - Last Reconciled 01/14/25 by Kylie Stratton MD atorvastatin 10 mg PO DAILY calcium 26-vit D3-magnesium 15 167 mg calcium- 1.67 mcg-83 mg 1 cap PO DAILY cranberry extract 500 mg PO DAILY [id number]-[id number] 149-hyal ac 750 mg-100 mg- 125 mg-1.65 mg (Glucosamine Chondroit Complx Advan) 1 tab PO DAILY multivitamin 1 tab PO DAILY omega-3 fatty acids 1,000 mg PO DAILY sulfasalazine 2 grams PO DAILY HPI Comments Details: Patient is a 69-year-old female with hyperlipidemia, osteoporosis, polyarticular osteoarthritis and seronegative erosive rheumatoid arthritis here today for follow up Interval History: Patient last seen 03/28/[address] Black - Doing well - decreased SSZ to 2000mg from 2500mg daily - c/o right middle trigger finger Today, - Continues to do well Rheumatologic History: onset 2005 -ve RF -ve CCP SSZ 06/2006 effective Trigger finger Multiple trigger fingers including right thumb, right middle finger and right little finger, only the right middle finger is symptomatic. She has received steroid injections in the past which initially helpful then stopped helping. Advised patient to wear a Band-Aid on her PIP is at night Current Rheumatology Medication(s): SSZ 2000mg daily [facility] Medical History (Updated 03/28/24 @ 16:16 by Dat Black MD) Osteoporosis Osteoarthritis of foot Surgical History H/O tubal ligation Social History Household Members: Spouse Both parents involved: No Caregiver staying overnight: No Housing: House Are you a primary daycare provider to a significant other at home: No Do you presently have visiting nurse or other home services: No 75 years or older and lives alone: No Alcohol intake: current Alcohol intake frequency: holidays/special occasions only Alcohol type: wine Patient Tobacco Use Status: Never used Tobacco e-Cigarette/Vaping Use: Never Used service: No Current occupational status: retired Review of Systems Const Details: Review of Systems Constitutional: Denies fever, chills, weight loss ENT: Denies vision changes, eye pain or eye redness, dental caries, dry mouth GI: Denies nausea, vomiting, diarrhea, abdominal pain, change in BM Pulm: Denies SOB, LOPES, hemoptysis, wheezing Cards: Denies chest pain, palpitations Skin: Denies Raynaud's, rash, nail changes, photosensitivity, 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 Well appearing and in no apparent painful distress MSK Hands * Right Hand: Able to make a fist. No swelling or tenderness to palpation of these joints. * Left Hand: Able to make a fist. No swelling or tenderness to palpation of these joints. * Herbedens nodes noted bilaterally Wrists * Right Wrist: Decreased ROM. No swelling or TTP * Left Wrist: Decreased ROM. No swelling or TTP Elbows * Right Elbow: Full ROM. No swelling or TTP. No TTP of the medial and lateral epicondyles * Left Elbow: Full ROM. No swelling or TTP. No TTP of the medial and lateral epicondyles Shoulders * Right shoulder: Full ROM. No swelling noted. No TTP of the AC joint, subacromi al bursa or posterior shoulder * Left shoulder: Full ROM. No swelling noted. No TTP of the AC joint, subacromial bursa or posterior shoulder Knees * Right knee: Full ROM. No swelling noted. No TTP of the knee joint lie or pes anserine bursa * Left knee: Full ROM. No swelling noted. No TTP of the knee joint lie or pes anserine bursa. * Crepitations felt bilaterally Ankles * Right ankle: Good ankle dorsiflexion and plantar flexion. No swelling. No TTP of the ankle joint * Left ankle: Good ankle dorsiflexion and plantar flexion. No swelling. No TTP of the ankle joint Feet * Right foot: Negative squeeze test. Bunion * Left foot: Negative squeeze test Tender points? * No tenderness to palpation of the bilateral trapezius, supraspinatus, anterior costochondral junctions, bilateral suboccipital muscle insertions SKIN No rashes Vital Signs: Last Vital Signs Pulse 86 01/14/25 15:10 BP 134/90 H 01/14/25 15:10 Pulse Ox 98 01/14/25 15:10 Oxygen Delivery Method Room Air 01/14/25 15:10 BMI result Body Mass Index 26.4 Results Reviewed Results Reviewed: Laboratory Tests 12/23/24 08:10 WBC 4.3 L RBC 4.16 L Hgb 11.6 L Hct 35.7 L Plt Count 321 ESR 36 H Sodium 139 Potassium 4.0 Chloride 107 Carbon Dioxide 24 BUN 18 H Creatinine 0.71 AST 29 ALT 14 C-Reactive Protein 0.19 XR Bilateral Hands 09/2021 FINDINGS: Left Hand: There is periarticular bony erosive changes DIP joint 3rd digit and mild periarticular spurring DIP joint 2nd digit. No visible acute fracture or dislocation seen. Soft tissues are unremarkable. Right Hand: There is no visible acute fracture, dislocation or subluxation. Mild loss of PIP and DIP joint spaces seen. There is minimal periarticular spurring DIP joints 2nd and 3rd digits. There is mild osteopenia. IMPRESSION: Mild degenerative changes PIP and DIP joints of both hands. No visible acute fracture or dislocation. No subluxation seen. Assessment & Plan Assessment & Plan (1) Seronegative rheumatoid arthritis: Comment: onset 2005 -ve RF -ve CCP SSZ 06/2006 effective Code(s): M06.00 - Rheumatoid arthritis without rheumatoid factor, unspecified site Category: Medical Plan: #Seronegative erosive rheumatoid arthritis Patient is a 69-year-old female with seronegative erosive rheumatoid arthritis here today for follow up. Doing well on sulfasalazine 2000 mg. Of note she has low white count and low hemoglobin but she does note that she has had a recent Lyme infection which could be contributing to these numbers. We will continue to decrease her sulfasalazine Plan - SSZ 1500mg daily - RTC 6 months - Labs before visit: CBC, CMP, ESR, CRP (2) Osteoporosis: Code(s): M81.0 - Age-related osteoporosis without current pathological fracture Category: Medical Qualifiers: Osteoporosis type: age-related Presence of current pathological fracture: without current pathological fracture Qualified Code(s): M81.0 - Age- related osteoporosis without current pathological fracture Plan: #Osteoporosis Patient with history of osteoporosis not currently on treatment. Last DEXA scan more than 2 years ago. Patient says she will follow up with her PCP for repeat (3) On sulfasalazine therapy: Code(s): Z79.899 - Other intermodal truck driver (current) drug therapy Category: Medical Plan: #Long-term Use of Sulfasalazine Discussed with patient the risks and benefits of sulfasalazine in the management of the rheumatic condition Benefits include: - Reduced pain, reduce mortality, maintenance of remission then reduction of fla res Risks include: - GI upset, hemolysis (especially if G6PD deficiency), eosinophilia, headache, dizziness, rash, elevated LFTs Plan I spent 30 minutes reviewing the record and labs, taking a history, examining the patient, discussing the treatment plan, ordering diagnostic work up and documenting in the medical record Orders: Orders Complete Blood Count Auto Diff 6 Months M06.00 - Rheumatoid arthritis without rheumatoid factor, unspecified site C Reactive Protein 6 Months M06.00 - Rheumatoid arthritis without rheumatoid factor, unspecified site Vitamin D 25-OH Total 6 Months E55.9 - Vitamin D deficiency, unspecified Comprehensive Met. Panel 6 Months M06.00 - Rheumatoid arthritis without rheumatoid factor, unspecified site Erythrocyte Sedimentation Rate 6 Months M06.00 - Rheumatoid arthritis without rheumatoid factor, unspecified site Medications: Changed From sulfasalazine 2 grams PO DAILY M19.90 - Unspecified osteoarthritis, unspecified site To sulfasalazine 1.5 grams (3 x 500 mg) PO DAILY 270 tabs 1RF 90 days M19.90 - Unspecified osteoarthritis, unspecified site Coding Level of Care Code Est Pt Level 4 (29441) Complex EM visit Add On G2211 Diagnoses Seronegative rheumatoid arthritis M06.00 Age-related osteoporosis without current pathological fracture M81.0 Osteoporosis type: age-related Presence of current pathological fracture: without current pathological fracture On sulfasalazine therapy Z79.899
[2025-01-14 15:10] VITALS: BP 134/90; PULSE 86; O2SAT 98; BMI 26.4
== END 2025-01-14 15:47 | disposition home or self-care (01) ==
LOC: HO.RHE 14:44
PROVIDERS: PCP Nurse Practitioner Family; Visit Provider Student in an Organized Health Care Education/Training Program
DX: M06.00 Rheumatoid arthritis without rheumatoid factor, unspecified site (principal); M81.0 Age-related osteoporosis without current pathological fracture; Z79.899 Other long term (current) drug therapy
CPT/HCPCS: 99214